=== PATIENT | male | born 1945 | race Caucasian/White ===

== ENCOUNTER 2018-03-24 16:11 | Emergency (ER) | payer MEDICARE ==
[~2018-03-24] VITALS: Ht 165.1 cm; Wt 47.2 kg
== END 2018-03-24 16:55 | disposition home or self-care (01) ==
LOC: ED 16:11
DX: R04.0 Epistaxis (principal)

== ENCOUNTER 2019-07-22 00:28 | Emergency (ER) | payer MEDICARE ==
[~2019-07-22] VITALS: Ht 165.1 cm; Wt 51.9 kg
[2019-07-22] MEDS ORDERED: TAMSULOSIN HCL0.4 MG PO (00:34)
[2019-07-22] MEDS ORDERED: NORCO 5-325 TA1 EACH PO (02:26)
== END 2019-07-22 02:50 | disposition home or self-care (01) ==
LOC: ED 00:28
DX: S42.212A Unspecified displaced fracture of surgical neck of left humerus, initial encounter for closed fracture (principal); Z79.899 Other long term (current) drug therapy; W01.0XXA Fall on same level from slipping, tripping and stumbling without subsequent striking against object, initial encounter; Y93.89 Activity, other specified; Y92.098 Other place in other non-institutional residence as the place of occurrence of the external cause; Y99.8 Other external cause status

== ENCOUNTER → 2019-07-28 | Outpatient (CLI) | payer MEDICARE ==
[~2019-07-28] MED LIST: NORCO 5-325 TA1 EACH PO; TAMSULOSIN HCL0.4 MG PO
== END | disposition home or self-care (01) ==
LOC: CT 07-26 09:00
DX: M85.812 Other specified disorders of bone density and structure, left shoulder (principal); S42.92XA Fracture of left shoulder girdle, part unspecified, initial encounter for closed fracture; W19.XXXA Unspecified fall, initial encounter; Y93.89 Activity, other specified; Y92.89 Other specified places as the place of occurrence of the external cause; Y99.8 Other external cause status